=== PATIENT | female | born 1970 | race Caucasian/White ===

== ENCOUNTER 2024-05-13 14:48 | Emergency (ER) | payer SELFPAY ==
[2024-05-13 14:48] VITALS: BP 136/80; PULSE 70; RESP 16; TEMP 36.7; O2SAT 100; BMI 27.4
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
--- NOTE | 2024-05-13 15:09 | PC.NURSE ---
PT TO CT
[2024-05-13 15:32] LABS: Prothrombin Time 11.2 seconds (10.1-12.5)
[2024-05-13 15:33] LABS: Chloride 100 mmol/L (98-107)
[2024-05-13 15:34] LABS: Albumin Level 4.4 g/dl (3.5-5.0); Sodium 138 mmol/L (136-145)
[2024-05-13 15:36] LABS: Alanine Aminotransferase 46 U/L (12-78); Albumin/Globulin Ratio 1.5 (1.1-1.8); Alkaline Phosphatase 113 U/L (38-126); Aspartate Amino Transferase 61 U/L (14-36); Bilirubin,Total 0.6 mg/dl (0.2-1.3); Blood Urea Nitrogen 14 mg/dl (7-17); Carbon Dioxide 33 mmol/L (22.0-30.0); Estimated Glomerular Filt Rate 75 ml/min (>60); GFR (African American) 91 ML/MIN (>60); Total Protein,Serum 7.4 g/dl (6.3-8.2)
[2024-05-13 15:37] LABS: Calcium 8.9 mg/dl (8.4-10.2); Glucose 89 mg/dl (74-100)
[2024-05-13] MEDS: 0.9 % SODIUM CHLORIDE 50 ML VIAL IV (15:41)
[2024-05-13] MEDS: SODIUM CHLORIDE 0.9% 10ML SYR (RAD ONLY) 10 ML IV (15:41)
[2024-05-13] MEDS: IOPAMIDOL-370 (76%);100ML BOTTLE 80 ML IV (15:41)
[2024-05-13 15:43] LABS: Ethyl Alcohol 293 mg/dl (0-10)
[2024-05-13 15:51] LABS: Eosinophils % 4.1 % (0.1-12.0); Hematocrit 42.9 % (37.0-47.0); Hemoglobin 14.9 g/dL (12.2-16.2); Lymphocytes % 39.6 % (10-50); Mean Corpuscular HGB Conc 34.7 g/dL (31.8-35.4); Mean Corpuscular Volume 92.1 fl (81-99); Mean Platelet Volume 9.1 fl (7.4-10.4); Monocytes % 7.2 % (1.7-9.3); Neutrophils % 47.6 % (37.0-80.0); Platelet Count 224 K/mm3 (142-424); Red Blood Count 4.66 M/mm3 (4.20-5.40); Red Cell Distribution Width 14.1 % (11.5-17.5); White Blood Count 7.3 K/mm3 (4.8-10.8)
[2024-05-13 15:52] LABS: Basophils # 0.1 K/mm3 (0-0.2); Eosinophils # 0.3 K/mm3 (0.0-0.4); Lymphocytes # 2.9 K/mm3 (0.7-4.5); Monocytes # 0.5 K/mm3 (0.1-1.0); Neutrophils # 3.5 K/mm3 (1.8-7.8)
--- NOTE | 2024-05-13 15:57 | PC.NURSE ---
IV REMOVED PER PT REQUEST
[2024-05-13 16:03] LABS: HCG Qualitative, Serum Negative (Negative)
--- NOTE | 2024-05-13 16:23 | PC.NURSE ---
DR BA AT BEDSIDE
--- NOTE | 2024-05-13 16:43 | PC.NURSE ---
DR BA SPEAKING WITH TRANSFER CENTER AT FOR [facility]
--- NOTE | 2024-05-13 16:51 | PC.NURSE ---
per Dr. Jones pt has been accepted to [facility]
[2024-05-13] MEDS: EPINEPHrine 1 MG/ML AMPUL TP (16:52)
[2024-05-13] MEDS: COCAINE 4% TOPICAL SOLN 4ML BOTTLE 1 ML TP (16:52)
[2024-05-13] MEDS: LIDOCAINE 2% UROJET 10ML TP (16:53)
[2024-05-13 17:02] LABS: Acetaminophen < 10 ug/ml (10-30); Salicylate < 1.0 mg/dL (2.0-20.0)
[2024-05-13 17:12] VITALS: BP 116/82; PULSE 68; RESP 16; O2SAT 100
--- NOTE | 2024-05-13 17:41 | PC.NURSE ---
REPORT GIVEN TO SAVANAH MARSHALLATH
--- NOTE | 2024-05-13 17:46 | PC.NURSE ---
[facility] NOTIFIED OF TRANSFER
--- NOTE | 2024-05-13 18:29 | PC.NURSE ---
PT PROVIDED SUPPER TRAY
--- NOTE | 2024-05-13 18:51 | PC.NURSE ---
SPOKE WITH PT DAUGHTER VINNIE WILLIAM, UPDATED ON POC PER PT REQUEST. [phone]
--- NOTE | 2024-05-13 19:34 | PC.NURSE ---
called and confirmed that EMS is aware of need to transfer
[2024-05-13] MEDS: TET/DIPHTH/PERT-ADULT 0.5ML SYRINGE 0.5 ML IM (19:41)
[2024-05-13 19:47] LABS: Microscopic, Urine URINE MICROSCOPIC (MICROSCOPIC)
[2024-05-13 19:52] LABS: Appearance,Urine CLEAR (Clear); Bilirubin,Urine Negative (Negative); Blood, Urine Negative (Negative); Color,Urine YELLOW (Yellow); Glucose,Urine (UA) Negative (Negative); Ketones,Urine Negative (Negative); Leukocyte Esterase,Urine Negative (Negative); Nitrate,Urine Negative (Negative); Protein,Urine Negative (Negative); Specific Gravity, Urine <= 1.005 (1.005-1.030); Urobilinogen,Urine 0.2 EU/dl (0.2)
--- NOTE | 2024-05-13 19:55 | PC.NURSE ---
Pt states she is wanting to leave Explained to patient that if she is not going to [facility] we would need to call the police to come get her. Pt verbalized an understanding of this information
[2024-05-13 20:00] LABS: WBC,Urine Occasional #/hpf (0-3)
[2024-05-13 20:01] LABS: Barbiturates Screen,Urine Negative ng/ml (<200)
[2024-05-13 20:02] LABS: Benzodiazepines Screen,Urine Positive ng/ml (<200)
[2024-05-13 20:03] LABS: Amphetamine/Metha Screen,Urine Negative ng/ml (<1000)
[2024-05-13 20:04] LABS: Cannabinoid Screen,Urine Positive ng/ml (<50); Cocaine Screen,Urine Negative ng/ml (<300)
[2024-05-13 20:05] LABS: Methadone Screen,Urine Negative ng/ml (<300); Opiate Screen,Urine Negative ng/ml (<300)
[2024-05-13 20:06] LABS: Phencyclidine Screen,Urine Negative ng/ml (<25)
--- NOTE | 2024-05-13 20:59 | PC.NURSE ---
Called [facility] to let them know pt in in route. S/W Tiana SAHU
[2024-05-13 21:03] VITALS: BP 129/78; PULSE 69; RESP 18; TEMP 36.6; O2SAT 99
== END 2024-05-13 20:45 ==
PROVIDERS: Emergency Medicine; Emergency Provider Emergency Medicine
DX: R45.851 Suicidal ideations (principal); S01.01XA Laceration without foreign body of scalp, initial encounter; T14.90XA Injury, unspecified, initial encounter; Z23 Encounter for immunization
CPT/HCPCS: 70450; 71045; 71275; 72125; 72128; 72131; 72170; 74174; 80053; 80307; 80320; 80329; 81001; 84703; 85025; 85610; 90471; 90715; 99285; G0480; J0171; Q9967